=== PATIENT | female | born 1955 | race Caucasian/White ===

== ENCOUNTER 2020-02-28 10:15 | Outpatient (NON) | payer MEDICARE, BC, SELFPAY ==
[2020-02-28 21:17] LABS: SARS-CoV-2 RNA PCR Negative
== END 2020-02-28 10:16 ==
PROVIDERS: Visit Provider Internal Medicine
DX: Z20.828 Contact with and (suspected) exposure to other viral communicable diseases (principal); R05 Cough; R06.2 Wheezing
CPT/HCPCS: 87635; C9803; U0003

== ENCOUNTER 2020-05-01 07:04 | Outpatient (NON) | payer MEDICARE, BC, SELFPAY ==
[2020-05-01 23:31] LABS: SARS-CoV-2 RNA PCR Negative
== END 2020-05-01 07:05 ==
LOC: ANHCOVIDDT 07:04
PROVIDERS: Visit Provider Internal Medicine
DX: R05 Cough (principal); J45.909 Unspecified asthma, uncomplicated; Z20.828 Contact with and (suspected) exposure to other viral communicable diseases
CPT/HCPCS: 87635; C9803; U0003

== ENCOUNTER 2020-05-05 12:15 | Outpatient (NON) | payer MEDICARE, BC, SELFPAY ==
[2020-05-06 20:05] LABS: SARS-CoV-2 RNA PCR Negative
== END 2020-05-05 12:16 ==
PROVIDERS: Visit Provider Internal Medicine
DX: R05 Cough (principal); J45.909 Unspecified asthma, uncomplicated; Z20.828 Contact with and (suspected) exposure to other viral communicable diseases
CPT/HCPCS: 87635; C9803; U0003

== ENCOUNTER 2024-04-04 10:35 | Emergency (ER) | payer MEDICARE, BC, SELFPAY ==
[2024-04-04] VITALS (14 sets, daily range): BP systolic 100–157; BP diastolic 52–97; PULSE 65–97; RESP 14–22; TEMP 36.4–36.8; O2SAT 95–100
--- NOTE | ~2024-04-04 | XR_ITS ---
Portable chest x-ray Comparison: None Clinical History: Shortness of breath Findings: Visualized lungs are clear. Left costophrenic angle probably partially excluded from the f [id number]. Cardiomediastinal silhouette is unremarkable.. Bones and soft tissues are unremarkable . Impression: No significant abnormality seen. Left costophrenic angle partially excluded from the [id number]. Reviewed, dictated and finalized at location M. E MAN Impression: No significant abnormality seen. Left costophrenic angle partially excluded fro m the [id number].
--- NOTE | ~2024-04-04 | US_ITS ---
EXAMINATION:US venous doppler LE LT INDICATION:Left leg swelling and pain TECHNIQUE: Multiple grayscale, color flow and Doppler images of the left lower extremity deep venous systems were obtained and reviewed. COMPARISON:No prior studies for comparison. FINDINGS: The common femoral, superficial femoral and popliteal veins demonstrate normal respiratory variation, augmentation and compressibility. Color flow is also seen within the posterior tibial, pe roneal, greater saphenous and profunda veins. IMPRESSION: 1: No lower extremity deep venous thrombosis. Reviewed, dictated and finalized at location B. NER GREASER
--- NOTE | 2024-04-04 12:11 | ECG_ITS ---
Test Date: 2024-04-04 12:59:38 Measurements Intervals [place] Rate: 79 P: 10 CO: 171 QRS: -3 QRSD: 91 T: 32 QT: 364 QTc: 418 Interpretive Statements SINUS RHYTHM DELAYED PRECORDIAL R/S TRANSITION MINIMAL Q WAVES- HIGH LATERAL LEADS BASELINE ARTIFACT- I, II, III, AVR, AVL,A VF, V2, V5 BORDERLINE ECG No previous ECG available for comparison Electronically Signed On 04-04-2024 13:07:25 LUMP MACHINE OPERATOR by Maged Felton D.O.
[2024-04-04 12:30] LABS: Basophils Percent Auto 0.6 % (0.2-1.2); Eosinophils Absolute Auto 0.1 K/mm3 (0-0.3); Eosinophils Percent Auto 1.2 % (0-4.4); Hematocrit 36.9 % (37.0-47.0); Hemoglobin 11.7 g/dL (12.0-15.0); Immature Granulocyte Absolute 0.02 K/mm3 (0.00-0.031); Immature Granulocyte Percent A 0.3 % (0-0.5); Lymphocytes Absolute Auto 0.56 K/mm3 (0.9-3.2); Lymphocytes Percent Auto 8.6 % (18.3-44.2); Mean Corpuscular HGB Conc 31.7 g/dl (32-36); Mean Corpuscular Hemoglobin 29.1 pg (26-34); Mean Corpuscular Volume 91.8 fl (80-100); Mean Platelet Volume 9.1 fl (7.4-10.4); Monocytes Absolute Auto 0.8 K/mm3 (0.1-0.6); Monocytes Percent Auto 12.7 % (2.6-8.5); Neutrophils Percent Auto 76.6 % (45.5-73.1); Platelet Count Result 214 k/mm3 (150-375); Red Blood Count 4.02 M/mm3 (4.2-5.4); Red Cell Distribution Width 14.8 % (11.5-14.5); White Blood Count 6.5 K/mm3 (4.5-10.0)
[2024-04-04 12:41] LABS: Alanine Aminotransferase 25 U/L (6-35); Albumin Level 3.3 g/dL (3.5-5.1); Alkaline Phosphatase 171 U/L (38-126); Anion Gap 3 mmol/L (4-12); Aspartate Amino Transferase 38 U/L (14-36); Bilirubin,Total 0.6 mg/dL (0.2-1.3); Blood Urea Nitrogen 16 mg/dL (7-17); Calcium 8.5 mg/dL (8.4-10.2); Carbon Dioxide 34 mmol/L (22-30); Chloride 99 mmol/L (98-107); Estimated CRCL calculation 108 ml/min; Estimated Glomerular Filt Rate > 60; Glucose 105 mg/dL (65-110); INR 1.1; Lipase 117 U/L (23-300); Magnesium 1.8 mg/dL (1.6-2.3); Potassium 3.7 mmol/L (3.4-5.0); Prothrombin Time 14.2 Seconds (11.1-14.7); Sodium 136 mmol/L (137-145)
[2024-04-04 12:42] LABS: Partial Thromboplastin Time 28.6 Seconds (22.3-36.8)
[2024-04-04 12:51] LABS: NT Pro B Type Natriuretic Pept 134 pg/mL (19.9-100); Troponin I < 0.012 ng/mL (0.000-0.034)
[2024-04-04 13:42] LABS: Add Urine Microscopic? NO; Appearance Urine Clear (Clear); Bilirubin Urine Negative (Negative); Blood Urine Negative (Negative); Color Urine Yellow (Yellow); Glucose Urine UA Negative (Negative); Ketones Urine Negative (Negative); Leukocyte Esterase Ur Negative LEU/UL (Negative); Nitrate Urine Negative (Negative); Protein Urine Negative (Negative); Specific Grav Ur 1.012 (1.001-1.035); pH Urine 7.5 (5.0-9.0)
--- NOTE | 2024-04-04 14:01 | ED.GENADULT ---
HPI - General Adult General Chief complaint: Unspecified Stated complaint: dyspnea and pain all over Time Seen by Provider: 04/04/24 11:35 History of Present Illness HPI narrative: patient is a 68-year-old female who presents emergency department with chief complaint of lower extremity edema redness pain for a month the patient also reports he has been having cramping in her arms and legs reports she has been doing potassium supplementation patient states she has also had some urinary frequency and urgency for the last month as well the patient states that she also has pain in the left side of her chest patient reports that pain is not improved by anything reports that she has had no fevers Related Data Allergies Allergy/AdvReac Type Severity Reaction Status Date / Time morphine Allergy Vomiting Verified 04/04/24 10:50 Penicillins AdvReac Swelling Verified 04/04/24 10:50 of Lip/Tongue/Throat Review of Systems Review of Systems: A 10 system review of systems was completed on the patient and is negative except for what is stated in the HPI. Nursing and ancillary documentation was reviewed. Exam Narrative: GENERAL: Well-appearing, well-nourished, and in no acute distress. HEAD: Normocephalic, atraumatic. EYES: PERRLA and EOMI. ENT: Nares clear, no rhinorrhea or epistaxis. Mucous membranes moist. NECK: Supple. CHEST: Clear to auscultation. No respiratory distress. HEART: Regular rate and rhythm. No murmur heard. Normal peripheral pulses. ABDOMEN: Soft, nontender, nondistended, normal active bowel sounds. EXTREMITIES: Normal range of motion. No edema. palpable dorsalis pedis on the right left is dopplerable SKIN: Warm, dry, no rash. NEURO: No focal deficits. Alert and oriented x3. PSYCH: Normal mood and affect. Course Vital Signs Vital signs: Vital Signs Temperature 36.8 C 04/04/24 10:43 Pulse Rate 97 04/04/24 10:43 Respiratory Rate 19 04/04/24 10:43 Pulse Oximetry 99 04/04/24 10:43 Oxygen Delivery Room Air 04/04/24 10:43 Temperature 36.4 C 04/04/24 13:06 Pulse Rate 79 04/04/24 14:46 Respiratory Rate 18 04/04/24 14:46 Blood Pressure 114/52 L 04/04/24 14:46 Pulse Oximetry 100 04/04/24 14:46 Oxygen Delivery Room Air 04/04/24 10:43 Medical Decision Making MDM Narrative Medical decision making narrative: differential diagnosis includes DVT left lower extremity, CHF, UTI, ACS, EKG showed no acute ischemic changes urinalysis showed no evidence UTI electrolytes did show a magnesium of 1 point a troponin was negative BNP was 134 venous duplex of left lower extremity showed no evidence of DVT the patient will be given 1 g of IV magnesium and 40 mEq of p.o. potassium Vital Signs Vital Signs: Vital Signs Temperature 36.8 C 04/04/24 10:43 Pulse Rate 97 04/04/24 10:43 Respiratory Rate 19 04/04/24 10:43 Pulse Oximetry 99 04/04/24 10:43 Oxygen Delivery Room Air 04/04/24 10:43 Temperature 36.4 C 04/04/24 13:06 Pulse Rate 79 04/04/24 14:46 Respiratory Rate 18 04/04/24 14:46 Blood Pressure 114/52 L 04/04/24 14:46 Pulse Oximetry 100 04/04/24 14:46 Oxygen Delivery Room Air 04/04/24 10:43 Lab Data 04/04/24 12:24 04/04/24 12:24 Labs: Lab Results 04/04/24 04/04/24 04/04/24 Range/Units 12:24 13:12 15:08 WBC 6.5 (4.5-10.0) K/mm3 RBC 4.02 L (4.2-5.4) M/mm3 Hgb 11.7 L (12.0-15.0) g/dL Hct 36.9 L (37.0-47.0) % MCV 91.8 (80-100) fl MCH 29.1 (26-34) pg MCHC 31.7 L (32-36) g/dl RDW 14.8 H (11.5-14.5) % Plt Count 214 (150-375) k/mm3 MPV 9.1 (7.4-10.4) fl Immature Gran % (Auto) 0.3 (0-0.5) % Neut % (Auto) 76.6 H (45.5-73.1) % Lymph % (Auto) 8.6 L (18.3-44.2) % [place] % (Auto) 12.7 H (2.6-8.5) % Eos % (Auto) 1.2 (0-4.4) % Baso % (Auto) 0.6 (0.2-1.2) % Lymph # (Auto) 0.56 L (0.9-3.2) K/mm3 [place] # (Auto) 0.8 H (0.1-0.6) K/mm3 Eos # (Auto) 0.1 (0-0.3) K/mm3 Baso # (Auto) 0.0 (0.0-0.1) K/mm3 Abs Immat Gran (auto) 0.02 (0.00-0.031) K/mm3 Absolute Neuts (auto) 5.0 (1.3-6.7) K/mm3 Absolute Nucleated RBC 0.000 (0.0-0.012) K/mm3 Nucleated RBC % 0.0 (0.0-0.2) % PT 14.2 (11.1-14.7) Seconds INR 1.1 APTT 28.6 (22.3-36.8) Seconds Sodium 136 L (137-145) mmol/L Potassium 3.7 (3.4-5.0) mmol/L Chloride 99 (98-107) mmol/L Carbon Dioxide 34 H (22-30) mmol/L Anion Gap 3 L (4-12) mmol/L BUN 16 (7-17) mg/dL Creatinine 0.50 L (0.7-1.0) mg/dL Estim Creat Clear Calc 108 ml/min Estimated GFR > 60 (59 - ) Glucose 105 (65-110) mg/dL Calcium 8.5 (8.4-10.2) mg/dL Magnesium 1.8 (1.6-2.3) mg/dL Total Bilirubin 0.6 (0.2-1.3) mg/dL AST 38 H (14-36) U/L ALT 25 (6-35) U/L Alkaline Phosphatase 171 H (38-126) U/L Troponin I < 0.012 < 0.012 (0.000-0.034) ng/mL NT-Pro-B Natriuret Pep 134 H (19.9-100) pg/mL Total Protein 7.0 (6.3-8.2) g/dL Albumin 3.3 L (3.5-5.1) g/dL Lipase 117 (23-300) U/L Urine Color Yellow (Yellow) Urine Appearance Clear (Clear) Urine pH 7.5 (5.0-9.0) Ur Specific [place] 1.012 (1.001-1.035) Urine Protein Negative (Negative) mg/dL Urine Glucose (UA) Negative (Negative) mg/dL Urine Ketones Negative (Negative) mg/dL Ur Blood (Man) Negative (Negative) Urine Nitrate Negative (Negative) Urine Bilirubin Negative (Negative) Urine Urobilinogen 1.0 (<2.0) mg/dL Leukocyte Esterase Rfl Negative (Negative) ALKA/UL Discharge Plan Discharge Clinical Impression: Muscle cramps, Atypical chest pain Patient Disposition: Home, Self-Care Condition: Stable Instructions: Antibiotic Form, Chest Pain (ED), Hypomagnesemia (ED) Additional Instructions: the ultrasound showed no evidence of blood clot in your leg. Your laboratory studies showed that your magnesium was slightly on the lower side this may contribute to the muscle cramps that your having. Prescriptions: New magnesium oxide 500 mg magnesium tablet 500 mg PO BID Qty: 20 0RF Follow-up/Referrals: UNKNOWN,DOCTOR [Primary Care Provider] - Time of Disposition: 15:51 Quality HEART score for chest pain patients History: slightly suspicious ECG: normal Age: > or = to 65 years Risk factors: 1 or 2 risk factors Troponin: < or = to 1x normal limit Heart score: 3
--- NOTE | 2024-04-04 14:55 | ECG_ITS ---
Test Date: 2024-04-04 15:01:12 Measurements Intervals [place] Rate: 75 P: 28 FL: 160 QRS: -3 QRSD: 89 T: 42 QT: 369 QTc: 413 Interpretive Statements SINUS RHYTHM DELAYED PRECORDIAL R/S TRANSITION BORDERLINE ST-T WAVE ABNORMALITY- HIGH LATERAL LEADS BASELINE ARTIFACT- I, II, III, AVR, AVL, AVF, V1-V6 BORDERLINE ECG Compared to ECG 04/04/2024 12:59:38 NO SIGNIFICANT CHANGE Electronically Signed On 04-04-2024 15:14:50 ENGINEER by Maged Felton D.O.
[2024-04-04] MEDS: POTASSIUM CHLORIDE 20 MEQ PACKET (FOR LIQUID) 40 MEQ PO (15:06)
[2024-04-04] MEDS: MAGNESIUM SULF 1 GM/D5W 100 ML 1 GM/100 ML BAG IVPB (15:07)
[2024-04-04 15:36] LABS: Troponin I < 0.012 ng/mL (0.000-0.034)
== END 2024-04-04 16:15 | disposition home or self-care (01) ==
PROVIDERS: Emergency Provider Emergency Medicine
DX: R25.2 Cramp and spasm (principal); R07.89 Other chest pain
CPT/HCPCS: 36415; 71045; 80053; 81003; 83690; 83735; 83880; 84484; 85025; 85610; 85730; 93005; 93971; 96365; 99284; A9270; J3475

== ENCOUNTER 2024-11-18 12:43 | Inpatient (IN) | payer MEDICARE, BC, SELFPAY ==
[2024-11-18] VITALS (7 sets, daily range): BP systolic 103–123; BP diastolic 48–90; PULSE 73–96; RESP 14–20; TEMP 36.5–36.7; O2SAT 94–100; BMI 43.3
--- NOTE | ~2024-11-18 | CT_ITS ---
CLINICAL INDICATION: Left lower extremity cellulitis. COMPARISON: None. TECHNIQUE: Computed tomography (CT) of the left lower extremity was performed following the administr ation of intravenous contrast. The dose-length product was 2167.38 mGy-cm. FINDINGS/OBSERVATIONS: No rim-enhancing fluid collection is identified. Significant edema within the soft tissues, as detected clinically. No acute fracture. IMPRESSION: No rim-enhancing fluid collection. Significant soft tissue edema is detected. Reviewed, dictated and finalized at location A.
--- NOTE | ~2024-11-18 | US_ITS ---
EXAMINATION: US venous doppler [facility] DATE: 11/18/2024 16:23 INDICATION: Bilateral lower limb pain, swelling and erythema TECHNIQUE: Grayscale ultrasound images without and with compression and Doppler ultrasound images of the bilateral lower extremity veins were obtained. COMPARISON: None. FINDINGS: The visualized portions of right common femoral vein, profunda (deep) femoral vein, femoral vein, pop liteal vein, posterior tibial veins, peroneal veins, gastrocnemius vein and greater saphenous vein ou tflow are patent. The visualized portions of left common femoral vein, profunda femoral vein, femoral vein, popliteal v ein, posterior tibial veins, peroneal veins, gastrocnemius vein and greater saphenous vein outflow ar e patent. IMPRESSION: 1. No deep venous thrombosis in either lower limb. Reviewed, dictated and finalized at location A.
--- NOTE | ~2024-11-18 | XR_ITS ---
XR chest 1V portable Ordering provider: Monica Doan History: 69 years Female with . BLE . Comparison: April 04, 2024 FINDINGS: MEDIASTINUM: The cardiac silhouette is slightly enlarged. Congestive sunil. LUNGS: No effusions pneumothorax. Minimal opacification in the lung bases which may indicate atelectasis versus pneumonia. OTHER: No free air unde he diaphragm. Degenerative the spine. IMPRESSION: Bibasilar atelectasis versus pneumonia. Reviewed, dictated and finalized at location A.
--- NOTE | 2024-11-18 15:10 | ED_ITS ---
HPI - Extremity Problem General Chief complaint: Extremity Problem,Nontraumatic <Monica Doan PA-C - Last Filed: 11/18/24 18:06> Stated complaint: left leg swelling for a month <Monica Doan PA-C - Last Filed: 11/18/24 18:06> Time Seen by Provider: 11/18/24 16:31 <Monica Doan PA-C - Last Filed: 11/18/24 18:06> Focused HPI: 69 y/o F with a PMHx of CHF presents to the ED bilateral lower extremity edema and redness for the past 3 weeks with associated pain. Patient states her pain and her legs became significantly worse today, more notably in the left leg which prompted her to come to the ED. She states the pain is sharp and shooting in nature. She denies injury or trauma. She does endorse history of neuropathy but states this pain feels different. Denies chest pain, shortness of breath, fevers. She is prescribed 80 mg of Lasix which she states she has been taking as directed. GENERAL: Well-appearing, well-nourished, and in no acute distress. HEAD: Normocephalic, atraumatic. CHEST: Clear to auscultation. ?No respiratory distress. EXT: Bilateral lower extremity edema, left greater than right. DP pulses are dopplered. Extremities are pink, warm and dry with cap refill less than 2. There is blanching erythema. tenderness and warmth to bilateral lower extremities, left greater than right. There is 1 superficial wound to the left anterior tibia and and intact small pustule. No active drainage or purulence. Compartments are soft. HEART: Regular rate and rhythm.? NEURO: ?Alert and oriented x3. Patient screened in triage and initial orders placed.? ?Additional care and disposition to be based upon?diagnostic testing and treatment. <Monica Doan PA-C - Last Filed: 11/18/24 18:06> History of Present Illness HPI Narrative: Agree with the above triage note. <Monica Doan PA-C - Last Filed: 11/18/24 18:06> Related Data Home medications: Home Medications ?Medication ?Instructions ?Recorded ?Confirmed ?Last Taken ?Type atorvastatin 80 mg tablet 80 mg PO HS 06/05/24 06/05/24 06/04/24 History clopidogrel 75 mg tablet 75 mg PO DAILY 06/05/24 06/05/24 06/04/24 History fluticasone furoate 200 1 inh inhalation HS 06/05/24 06/05/24 06/04/24 History mcg-vilanterol 25 mcg/dose inhalation powder (Breo Ellipta) furosemide 80 mg tablet 80 mg PO DAILY PRN edema 06/05/24 06/05/24 06/04/24 History gabapentin 300 mg capsule 300 mg PO BID 06/05/24 06/05/24 06/04/24 History meclizine 25 mg tablet 12.5 mg PO .TID PRN dizziness 06/05/24 06/05/24 Unknown History oxybutynin chloride 5 mg 5 mg PO HS 06/05/24 06/05/24 Unknown History tablet,extended release 24 hr <Monica Doan PA-C - Last Filed: 11/18/24 18:06> Allergies/Adverse reactions: Allergies Allergy/AdvReac Type Severity Reaction Status Date / Time morphine Allergy Vomiting Verified 11/18/24 17:59 Penicillins AdvReac Swelling Verified 11/18/24 17:59 of Lip/Tongue/Throat <Monica Doan PA-C - Last Filed: 11/18/24 18:06> [facility] Past Medical History Medical History: Medical History (Updated 11/18/24 @ 17:36 by Monica Doan PA-C) Muscle cramps Atypical chest pain <Monica Doan PA-C - Last Filed: 11/18/24 18:06> Family History Family History: Family History Mother Seizure Lung disease Cerebrovascular accident Father Diabetes mellitus Heart failure <Monica Doan PA-C - Last Filed: 11/18/24 18:06> Social History Social History: Social History Smoking status: Never smoker Alcohol intake: never Substance use: never Do You Feel Safe in your Home?: Yes Lack of Transportation: No Lack of Food: Never True Current Housing: I Have Housing Concerned About Future Housing: Decline to Answer Difficulty Paying Gas/Electric Bills: Decline to Answer Difficulty Paying for Meds: Decline to Answer Currently Unemployed: Decline to Answer Education: High School Diploma/GED Difficulty w/ Childcare or Family Care: Decline to Answer Spiritual care concerns: No <Monica Daon PA-C - Last Filed: 11/18/24 18:06> Exam 2 Narrative: GENERAL: Well-appearing, well-nourished, and in no acute distress. HEAD: Normocephalic, atraumatic. EYES: EOMI. ENT: Nares clear, no rhinorrhea or epistaxis. Mucous membranes moist. NECK: Supple. CHEST: Clear to auscultation. No respiratory distress. HEART: Regular rate and rhythm. No murmur heard. Normal peripheral pulses. EXTREMITIES: Bilateral lower extremity edema, left greater than right. DP pulses are dopplered. Extremities are pink, warm and dry with cap refill less than 2. There is blanching erythema. tenderness and warmth to bilateral lower extremities, left greater than right. There is 1 superficial wound to the left anterior tibia and small intact small pustule. No active drainage or purulence. Compartments are soft. No crepitus or vesicles. HEART: Regular rate and rhythm.? SKIN: Warm, dry, no rash. NEURO: No focal deficits. Alert and oriented x3 <Monica Doan PA-C - Last Filed: 11/18/24 18:06> Course RESIDENT MANAGER/PA Physician Supervision Agree with the management <Rian Frederick MD - Last Filed: 11/18/24 19:19> Vital Signs Vital signs: Vital Signs Temperature 36.7 C 11/18/24 12:46 Pulse Rate 96 11/18/24 12:46 Respiratory Rate 15 11/18/24 12:46 Blood Pressure 123/88 11/18/24 12:46 Pulse Oximetry 98 11/18/24 12:46 Oxygen Delivery Room Air 11/18/24 12:46 Temperature 36.5 C 11/18/24 14:34 Pulse Rate 86 11/18/24 18:42 Respiratory Rate 17 11/18/24 18:42 Blood Pressure 109/59 L 11/18/24 18:42 Pulse Oximetry 97 11/18/24 18:42 Oxygen Delivery Room Air 11/18/24 12:46 <Monica Doan PA-C - Last Filed: 11/18/24 18:06> Vital Signs Temperature 36.7 C 11/18/24 12:46 Pulse Rate 96 11/18/24 12:46 Respiratory Rate 15 11/18/24 12:46 Blood Pressure 123/88 11/18/24 12:46 Pulse Oximetry 98 11/18/24 12:46 Oxygen Delivery Room Air 11/18/24 12:46 Temperature 36.5 C 11/18/24 14:34 Pulse Rate 86 11/18/24 18:42 Respiratory Rate 17 11/18/24 18:42 Blood Pressure 109/59 L 11/18/24 18:42 Pulse Oximetry 97 11/18/24 18:42 Oxygen Delivery Room Air 11/18/24 12:46 <Rian Frederick MD - Last Filed: 11/18/24 19:19> MDM - Extremity (Nontraumatic) MDM Narrative Medical decision making narrative: 69-year-old female history of CHF presents to the emergency department for bilateral lower extremity redness, swelling and pain. See HPI for further history. Triage vitals are stable. Patient is afebrile and nontoxic appearing. Exam is notable for the above. Patient is neurovascularly intact. EKG shows normal sinus rhythm with rate of 71 ppm, normal IA interval, normal QRS duration, normal QTC, no ischemic changes. Lab work shows no leukocytosis or anemia. Chemistries with chronically elevated alk phos. BNP is elevated to 491 which is increased from prior 134 in March of 2024. CRP elevated at 2.4. Chest x-ray shows bilateral atelectasis versus pneumonia. Low suspicion for pneumonia given no leukocytosis, no cough. Bilateral venous duplex shows no evidence of DVT. Patient updated on results. She was given Dilaudid for pain. I suspect her symptoms are due to stasis dermatitis versus cellulitis. She was given a dose of Lasix and started on vancomycin. Will admit for further evaluation and management. Discussed with hospitalist RESIDENT MANAGER, Emma, who agrees to admission. < Monica Doan PA-C - Last Filed: 11/18/24 18:06> Lab Data Result diagrams: 11/18/24 16:21 11/18/24 16:21 <Monica Doan PA-C - Last Filed: 11/18/24 18:06> Labs: Lab Results 11/18/24 Range/Units 16:21 WBC 7.1 (4.5-10.0) K/mm3 RBC 4.48 (4.2-5.4) M/mm3 Hgb 12.6 (12.0-15.0) g/dL Hct 40.5 (37.0-47.0) % MCV 90.4 (80-100) fl MCH 28.1 (26-34) pg MCHC 31.1 L (32-36) g/dl RDW 14.5 (11.5-14.5) % Plt Count 230 (150-375) k/mm3 MPV 9.4 (7.4-10.4) fl Immature Gran % (Auto) 0.1 (0-0.5) % Neut % (Auto) 70.0 (45.5-73.1) % Lymph % (Auto) 15.8 L (18.3-44.2) % [place] % (Auto) 11.7 H (2.6-8.5) % Eos % (Auto) 1.8 (0-4.4) % Baso % (Auto) 0.6 (0.2-1.2) % Lymph # (Auto) 1.12 (0.9-3.2) K/mm3 [place] # (Auto) 0.8 H (0.1-0.6) K/mm3 Eos # (Auto) 0.1 (0-0.3) K/mm3 Baso # (Auto) 0.0 (0.0-0.1) K/mm3 Abs Immat Gran (auto) 0.01 (0.00-0.031) K/mm3 Absolute Neuts (auto) 5.0 (1.3-6.7) K/mm3 Absolute Nucleated RBC 0.000 (0.0-0.012) K/mm3 Nucleated RBC % 0.0 (0.0-0.2) % ESR 41 H (0-20) mm/hr PT 13.6 (11.1-14.7) Seconds INR 1.1 APTT 22.7 (22.3-36.8) Seconds Sodium 139 (137-145) mmol/L Potassium 4.1 (3.4-5.0) mmol/L Chloride 103 (98-107) mmol/L Carbon Dioxide 31 H (22-30) mmol/L Anion Gap 5 (4-12) mmol/L BUN 15 D (7-17) mg/dL Creatinine 0.59 L (0.7-1.0) mg/dL Estim Creat Clear Calc 98 ml/min Estimated GFR > 60 (59 - ) Glucose 96 (65-110) mg/dL Lactic Acid 0.9 (0.7-2.0) mmol/L Calcium 8.7 (8.4-10.2) mg/dL Total Bilirubin 0.4 (0.2-1.3) mg/dL AST 42 H (14-36) U/L ALT 25 (6-35) U/L Alkaline Phosphatase 192 H (38-126) U/L C-Reactive Protein 2.4 H (<1.0) mg/dL NT-Pro-B Natriuret Pep 491 H (19.9-100) pg/mL Total Protein 7.3 (6.3-8.2) g/dL Albumin 3.6 (3.5-5.1) g/dL <Monica Doan PA-C - Last Filed: 11/18/24 18:06> Lab Results 11/18/24 Range/Units 16:21 WBC 7.1 (4.5-10.0) K/mm3 RBC 4.48 (4.2-5.4) M/mm3 Hgb 12.6 (12.0-15.0) g/dL Hct 40.5 (37.0-47.0) % MCV 90.4 (80-100) fl MCH 28.1 (26-34) pg MCHC 31.1 L (32-36) g/dl RDW 14.5 (11.5-14.5) % Plt Count 230 (150-375) k/mm3 MPV 9.4 (7.4-10.4) fl Immature Gran % (Auto) 0.1 (0-0.5) % Neut % (Auto) 70.0 (45.5-73.1) % Lymph % (Auto) 15.8 L (18.3-44.2) % Bond % (Auto) 11.7 H (2.6-8.5) % Eos % (Auto) 1.8 (0-4.4) % Baso % (Auto) 0.6 (0.2-1.2) % Lymph # (Auto) 1.12 (0.9-3.2) K/mm3 [place] # (Auto) 0.8 H (0.1-0.6) K/mm3 Eos # (Auto) 0.1 (0-0.3) K/mm3 Baso # (Auto) 0.0 (0.0-0.1) K/mm3 Abs Immat Gran (auto) 0.01 (0.00-0.031) K/mm3 Absolute Neuts (auto) 5.0 (1.3-6.7) K/mm3 Absolute Nucleated RBC 0.000 (0.0-0.012) K/mm3 Nucleated RBC % 0.0 (0.0-0.2) % ESR 41 H (0-20) mm/hr PT 13.6 (11.1-14.7) Seconds INR 1.1 APTT 22.7 (22.3-36.8) Seconds Sodium 139 (137-145) mmol/L Potassium 4.1 (3.4-5.0) mmol/L Chloride 103 (98-107) mmol/L Carbon Dioxide 31 H (22-30) mmol/L Anion Gap 5 (4-12) mmol/L BUN 15 D (7-17) mg/dL Creatinine 0.59 L (0.7-1.0) mg/dL Estim Creat Clear Calc 98 ml/min Estimated GFR > 60 (59 - ) Glucose 96 (65-110) mg/dL Lactic Acid 0.9 (0.7-2.0) mmol/L Calcium 8.7 (8.4-10.2) mg/dL Total Bilirubin 0.4 (0.2-1.3) mg/dL AST 42 H (14-36) U/L ALT 25 (6-35) U/L Alkaline Phosphatase 192 H (38-126) U/L C-Reactive Protein 2.4 H (<1.0) mg/dL NT-Pro-B Natriuret Pep 491 H (19.9-100) pg/mL Total Protein 7.3 (6.3-8.2) g/dL Albumin 3.6 (3.5-5.1) g/dL <Rian Frederick MD - Last Filed: 11/18/24 19:19> Discharge Plan Discharge Clinical Impression: Bilateral leg edema Cellulitis Qualifiers: Site of cellulitis: extremity Site of cellulitis of extremity: lower extremity Laterality: left Qualified Code(s): L03.116 - Cellulitis of left lower limb <Monica Doan PA-C - Last Filed: 11/18/24 18:06> Patient Disposition: Still a Patient <Monica Doan PA-C - Last Filed: 11/18/24 18:06> Condition: Stable <Monica Doan PA-C - Last Filed: 11/18/24 18:06>
--- NOTE | 2024-11-18 15:47 | ECG_ITS ---
Test Date: 2024-11-18 17:01:14 Measurements Intervals [place] Rate: 71 P: 18 ID: [id number] QRS: -6 QRSD: 92 T: 24 QT: 384 QTc: 419 Interpretive Statements SINUS RHYTHM BASELINE ARTIFACT- I, II, III, AVR, AVL, AVF NORMAL ECG Compared to ECG 04/04/2024 15:01:12 No significant changes Electronically Signed On 11-18-2024 19:23:12 CDT by Maged Felton D.O.
[2024-11-18 16:28] LABS: Basophils Percent Auto 0.6 % (0.2-1.2); Eosinophils Absolute Auto 0.1 K/mm3 (0-0.3); Eosinophils Percent Auto 1.8 % (0-4.4); Hematocrit 40.5 % (37.0-47.0); Hemoglobin 12.6 g/dL (12.0-15.0); Immature Granulocyte Absolute 0.01 K/mm3 (0.00-0.031); Immature Granulocyte Percent A 0.1 % (0-0.5); Lymphocytes Absolute Auto 1.12 K/mm3 (0.9-3.2); Lymphocytes Percent Auto 15.8 % (18.3-44.2); Mean Corpuscular HGB Conc 31.1 g/dl (32-36); Mean Corpuscular Hemoglobin 28.1 pg (26-34); Mean Corpuscular Volume 90.4 fl (80-100); Mean Platelet Volume 9.4 fl (7.4-10.4); Monocytes Absolute Auto 0.8 K/mm3 (0.1-0.6); Monocytes Percent Auto 11.7 % (2.6-8.5); Platelet Count Result 230 k/mm3 (150-375); Red Blood Count 4.48 M/mm3 (4.2-5.4); Red Cell Distribution Width 14.5 % (11.5-14.5); White Blood Count 7.1 K/mm3 (4.5-10.0)
[2024-11-18 16:42] LABS: INR 1.1; Lactic Acid Reflex 0.9 mmol/L (0.7-2.0); Partial Thromboplastin Time 22.7 Seconds (22.3-36.8); Prothrombin Time 13.6 Seconds (11.1-14.7)
[2024-11-18 16:44] LABS: Alanine Aminotransferase 25 U/L (6-35); Albumin Level 3.6 g/dL (3.5-5.1); Alkaline Phosphatase 192 U/L (38-126); Anion Gap 5 mmol/L (4-12); Aspartate Amino Transferase 42 U/L (14-36); Bilirubin,Total 0.4 mg/dL (0.2-1.3); Blood Urea Nitrogen 15 mg/dL (7-17); CRP. 2.4 mg/dL (<1.0); Calcium 8.7 mg/dL (8.4-10.2); Carbon Dioxide 31 mmol/L (22-30); Chloride 103 mmol/L (98-107); Estimated CRCL calculation 98 ml/min; Estimated Glomerular Filt Rate > 60; Glucose 96 mg/dL (65-110); Potassium 4.1 mmol/L (3.4-5.0); Sodium 139 mmol/L (137-145); Total Protein 7.3 g/dL (6.3-8.2)
[2024-11-18 16:50] LABS: NT Pro B Type Natriuretic Pept 491 pg/mL (19.9-100)
[2024-11-18 17:44] LABS: Erythrocyte Sedimentation Rate 41 mm/hr (0-20)
--- NOTE | 2024-11-18 17:58 | PC.NURSE ---
pt informed this RN that she uses 3L of oxygen to sleep due to her sleep apnea and asthma
[2024-11-18] MEDS: ONDANSETRON INJ 4 MG/2 ML VIAL IV PUSH (18:07)
[2024-11-18] MEDS: HYDROmorphone HCL INJ (*CRX) 2 MG/ML VIAL 0.5 MG IV PUSH ×2 (18:09→23:33)
[2024-11-18] MEDS: FUROSEMIDE INJ 40 MG/4 ML VIAL IV PUSH (18:10)
[2024-11-18] MEDS: VANCOMYCIN 1,500 MG/NS 500 ML 1,500 MG/500 ML BAG 250 MG IVPB (18:22)
--- NOTE | 2024-11-18 19:28 | PC.NURSE ---
this RN waited the 15 minuets to call report and a little after due to giving report to the ED night nurse and the floor nurses getting report. this RN called up at 1920, waited on hold for 5 minuets, and spoke to a new night traveler nurse who said along the lines of I dont read about patients when I get here so you need to give me a run down, this RN said that in this hospital that is not policy but since its shift change this RN gave a brief run down of why the patient was here and what her POC is. floor nurse asked this RN where the IV was and this RN said that information is in the chart. floor nurse did not like that and said she will inform the nurse program manager about this, this RN said sounds good and to have a good night
--- NOTE | 2024-11-18 19:53 | ADMGEN ---
This patient, Brea Monsalve, was admitted to [address] [place] [address] Room 246-01 at 1957, alert and oriented x4 for yousif lower extremity cellulitis. Yousif lower extremities are red, swollen and tender to touch. Patient was able to be assisted off the stretcher and to the bathroom with touch balance and assist of cane (states uses walker at home and has history of vertigo). Patient assisted to bed safely, HOB elevated to comfort and IV Vancomycin continues to infuse with no ASE noted. Patient/family oriented to hospital policies and general routines including ID bracelet, bed and alarms, visiting hours, pain management, procedures, bathroom and other care routines, personal items, smoking policy, room service/diet, and visiting hours. Information on how to activate the Rapid Response Team has been discussed. Patient verbalized understanding. Patient/Family are encouraged to report perceived risks to care and to ask questions if they do not understand what they are told or what they should do.
--- NOTE | 2024-11-18 22:19 | PM.IMHP ---
H&P: HPI History of Present Illness Date/Time: 11/18/24 22:19 Chief Complaint: Increased swelling of both legs and pain Narrative: 69-year-old female with a past medical history of morbid obesity, obstructive sleep apnea on nighttime O2 chronic back pain, psoriasis, chronic lymphedema with venous stasis dermatitis who presented to the ER due to increasing swelling and erythema of the left leg. She reports he has chronic and edema of both legs but has had worsening edema of both legs over the last month or 2. But the edema in the left leg is been significantly worse. It is been accompanied by increased erythema of the left leg into ankle. DU to left leg is also more painful she reports the pain is a 10/10 intensity is worst. Is gotten better since she has been admitted but is still an 8/10 in intensity but prior to pain medication administration. She denies having any fevers but has been having some chills. She denies any nausea or vomiting. She denies any increased shortness of breath, or paroxysmal nocturnal dyspnea she sleeps in in a hospital bed with head of bed about 30?. She reports he has chronic orthopnea but it is unchanged from baseline is long she sleeps in her hospital bed at home. She does wear 3 L of oxygen in at night due to obstructive sleep apnea. She reports that she was never able to keep the CPAP on was when she was asleep she would always take it off so she was transition to oxygen. She denies any injuries or abrasions to the extremity she has not had any weeping or oozing. Review of Systems Review of Systems: 12 systems were reviewed with pertinent positives and negatives per HPI. Except as documented in the HPI, all other systems were reviewed and are negative. [facility] Past Medical History Medical History (Updated 11/19/24 @ 09:21 by Berta Hansen DO) Obstructive sleep apnea Nocturnal hypoxemia due to obesity Morbid (severe) obesity due to excess calories Hyperlipidemia Asthma Kidney stones Scoliosis Psoriasis Cancer of right breast Surgical History Surgical History (Updated 11/19/24 @ 09:21 by Berta Hansen DO) History of lumbar surgery History of oral surgery Removal of salivary gland tumor History of right mastectomy At age 39 History of total abdominal hysterectomy and bilateral salpingo-oophorectomy Due to uterine fibroids Family History Family History Mother Seizure Lung disease Cerebrovascular accident Father Diabetes mellitus Heart failure Social History Social History (Updated 11/19/24 @ 09:23 by Berta Hansen DO) Social History: The patient lives at home with her . She has 1 daughter and 1 son. She is a retired associate accountant. She is a lifelong nonsmoker. She denies any history of significant alcohol use or illicit substance use. She ambulates with a walker or cane. Code status: Full code Surrogate decision maker: Smoking status: Never smoker Second hand tobacco smoke exposure: No Alcohol intake: never Substance use: never Substance use type: does not use Do You Feel Safe in your Home?: Yes Lack of Transportation: No Lack of Food: Never True Current Housing: I Have Housing Concerned About Future Housing: Decline to Answer Difficulty Paying Gas/Electric Bills: Decline to Answer Difficulty Paying for Meds: Decline to Answer Currently Unemployed: Decline to Answer Education: High School Diploma/GED Difficulty w/ Childcare or Family Care: Decline to Answer Spiritual care concerns: No Meds Home Medications and Allergies Home Medications ?Medication ?Instructions ?Recorded ?Confirmed ?Type magnesium oxide 500 mg PO BID #20 tabs 04/04/24 11/18/24 Rx atorvastatin 80 mg tablet 80 mg PO HS cholesterol 06/05/24 11/18/24 History clopidogrel 75 mg tablet 75 mg PO DAILY blood thinner 06/05/24 11/18/24 History fluticasone furoate 200 1 inh inhalation HS asthma 06/05/24 11/18/24 History mcg-vilanterol 25 mcg/dose inhalation powder (Breo Ellipta) furosemide 80 mg tablet 80 mg PO DAILY PRN edema 06/05/24 11/18/24 History meclizine 25 mg tablet 12.5 mg PO .TID PRN dizziness 06/05/24 11/18/24 History oxybutynin chloride 5 mg 5 mg PO HS PRN bladder spasms 06/05/24 11/18/24 History tablet,extended release 24 hr acetaminophen 325 mg tablet 500 mg PO Q4H PRN Mild Pain (1-3) 11/18/24 11/18/24 History Or Fever cholecalciferol (vitamin D3) 125 125 mcg PO DAILY 11/18/24 11/18/24 History mcg (5,000 unit) tablet (Vitamin D3) coQ10 (ubiquinol) 200 mg capsule 200 mg PO DAILY 11/18/24 11/18/24 History ginkgo biloba leaf extract 125 mg 125 mg PO DAILY 11/18/24 11/18/24 History capsule potassium chloride 10 mEq 10 meq PO BID 11/18/24 11/18/24 History tablet,extended release(part/cryst) Allergies Allergy/AdvReac Type Severity Reaction Status Date / Time morphine Allergy Vomiting Verified 11/18/24 17:59 Penicillins AdvReac Swelling Verified 11/18/24 17:59 of Lip/Tongue/Throat Vital Signs Vital Signs - 24 hr 11/18/24 12:46 11/18/24 14:34 11/18/24 17:50 Temperature 98.0 F 97.7 F Pulse Rate 96 73 84 Respiratory Rate 15 18 14 Blood Pressure 123/88 120/90 123/68 Pulse Oximetry 98 100 99 Oxygen Delivery Room Air 11/18/24 18:42 11/18/24 19:19 11/18/24 20:00 Temperature 98.0 F Pulse Rate 86 86 85 Respiratory Rate 17 18 18 Blood Pressure 109/59 L 109/59 L 103/48 L Pulse Oximetry 97 94 95 Oxygen Delivery 11/18/24 21:44 Temperature Pulse Rate Respiratory Rate 20 Blood Pressure Pulse Oximetry Oxygen Delivery Exam Narrative: Weight 118.2 kg BMI 43.4 Const: Other: Morbidly obese, no acute distress HENMT: Other: Nasal cannula in place, mucous membranes are moist, crowded posterior oropharynx Eyes: Other: No scleral icterus, no conjunctival pallor, pupils are equal and reactive Neck: Other: Large neck circumference, no JVD Resp: Other: Clear to auscultation bilaterally, no increased work of breathing Cardio: Other: Regular rate, regular rhythm, 2+ bilateral radial and pedal pulses GI: Other: Obese, soft, nontender Skin: Other: Erythema bilateral lower extremities with skin changes consistent with chronic venous stasis dermatitis/lymphedema, the right leg appears chronically erythematous about the mid sewell down to the ankle the left lower extremity is more erythematous with erythema extending down below the ankle specially in the medial portion of the leg and the erythema extends up to just below the knee it is associated with increased tenderness to palpation and increased edema as well as increased warmth. No open wounds or drainage Neuro: Other: Alert oriented x4, speech is clear, no facial asymmetry no localizing neurologic deficits noted during the course of conversation Extrem: Other: Mild decreased range of motion of the left ankle due to edema, bilateral lower extremity edema left greater than right nonpitting erythema is noted above under skin exam, no clubbing, no cyanosis Psych: Other: Appropriate mood and affect, judgment insight intact H&P: Results Labs Labs: Laboratory Tests 11/18/24 16:21 11/18/24 16:21 11/18/24 16:21 WBC 7.1 RBC 4.48 Hgb 12.6 Hct 40.5 MCV 90.4 MCH 28.1 MCHC 31.1 L RDW 14.5 Plt Count 230 MPV 9.4 Immature Gran % (Auto) 0.1 Neut % (Auto) 70.0 Lymph % (Auto) 15.8 L Clare % (Auto) 11.7 H Eos % (Auto) 1.8 Baso % (Auto) 0.6 Lymph # (Auto) 1.12 Clare # (Auto) 0.8 H Eos # (Auto) 0.1 Baso # (Auto) 0.0 Abs Immat Gran (auto) 0.01 Absolute Neuts (auto) 5.0 Absolute Nucleated RBC 0.000 Nucleated RBC % 0.0 ESR 41 H PT 13.6 INR 1.1 APTT 22.7 Sodium 139 Potassium 4.1 Chloride 103 Carbon Dioxide 31 H Anion Gap 5 BUN 15 D Creatinine 0.59 L Estim Creat Clear Calc 98 Estimated GFR > 60 Glucose 96 Lactic Acid 0.9 Calcium 8.7 Total Bilirubin 0.4 AST 42 H ALT 25 Alkaline Phosphatase 192 H C-Reactive Protein 2.4 H NT-Pro-B Natriuret Pep 491 H Total Protein 7.3 Albumin 3.6 Impressions Venous Doppler Study 11/18/24 16:25 IMPRESSION: 1. No deep venous thrombosis in either lower limb. Chest X-Ray 11/18/24 16:42 IMPRESSION: Bibasilar atelectasis versus pneumonia. EKG:Test Date: 2024-11-18 17:01:14 Measurements Intervals [place] Rate: 71 P: 18 [place]: 162 QRS: -6 QRSD: 92 T: 24 QT: 384 QTc: 419 Interpretive Statements SINUS RHYTHM BASELINE ARTIFACT- I, II, III, AVR, AVL, AVF NORMAL ECG Compared to ECG 04/04/2024 15:01:12 No significant changes Assessment and Plan Assessment and plan (1) Cellulitis of left lower leg: Code(s): L03.116 - Cellulitis of left lower limb Status: Acute (2) Lymphedema due to venous disease: Code(s): I89.0 - Lymphedema, not elsewhere classified; I99.9 - Unspecified disorder of circulatory system Status: Acute (3) Morbid (severe) obesity due to excess calories: Code(s): E66.01 - Morbid (severe) obesity due to excess calories Status: Acute (4) Nocturnal hypoxemia due to obesity: Code(s): E66.9 - Obesity, unspecified; G47.36 - Sleep related hypoventilation in conditions classified elsewhere Status: Acute Plan Patient has been started on vancomycin for cellulitis of the left lower extremity. Will repeat CBC in a.m.. Will monitor for signs of infection. Will continue p.r.n. pain medications. Blood cultures are pending. Will continue patient on her home supplemental oxygen at night. Will continue patient's home Breo inhaler. She reports that she has lost 60 lb but in the last couple of months has actually gained back about 15 or 20 lb. She reports that she has gained the weight despite no changes in her diet. Place patient on I heart healthy diet. Patient has been admitted as observation status. MEDICAL DECISION MAKING NARRATIVE -Spoke with the ED provider in detail regarding patient's evaluation, workup and management -Patient seen and examined at bedside -Collaborated with patient's nurse at the bedside in detail and addressed all concerns -Labs, electrolytes, radiology, investigations and test results reviewed -ED/Consult/Nursing/Ancilliary notes on the chart reviewed and appreciated -Spoke with patient and all questions answered Quality VTE Prophylaxis VTE prophylaxis: pharmacologic ordered (Lovenox 40 mg subQ q.12 hours.) Hospitalist [facility] Advance Care Plan I have confirmed that the patient's Advanced Care Plan is present, code status is documented, or surrogate decision maker is listed in patient medical record.: Yes Medication Reconciliation I have utilized all available resources to obtain, update and review the patients current medications (includes all prescriptions, OTC, herbals, cannabis, and nutritional supplements).: Yes
[2024-11-18] MEDS: MAGNESIUM OXIDE 400 MG TABLET PO (22:47)
[2024-11-18] MEDS: POTASSIUM CHLORIDE 10 MEQ ER TABLET PO (22:47)
[2024-11-18] MEDS: ATORVASTATIN 40 MG TABLET 80 MG PO (22:47)
[2024-11-19 05:13] VITALS: BP 144/76; PULSE 70; RESP 20; TEMP 36.5; O2SAT 100
[2024-11-19 05:20] LABS: Hematocrit 38.8 % (37.0-47.0); Hemoglobin 11.4 g/dL (12.0-15.0); Mean Corpuscular HGB Conc 29.4 g/dl (32-36); Mean Corpuscular Hemoglobin 28.4 pg (26-34); Mean Corpuscular Volume 96.5 fl (80-100); Mean Platelet Volume 10.2 fl (7.4-10.4); Platelet Count Result 204 k/mm3 (150-375); Red Blood Count 4.02 M/mm3 (4.2-5.4); Red Cell Distribution Width 14.6 % (11.5-14.5); White Blood Count 5.9 K/mm3 (4.5-10.0)
[2024-11-19] MEDS: VANCOMYCIN 1,500 MG/NS 500 ML 1,500 MG/500 ML BAG 250 MG IVPB ×2 (05:31→17:53)
[2024-11-19 06:37] LABS: Anion Gap 4 mmol/L (4-12); Blood Urea Nitrogen 15 mg/dL (7-17); Calcium 8.2 mg/dL (8.4-10.2); Carbon Dioxide 28 mmol/L (22-30); Chloride 104 mmol/L (98-107); Estimated CRCL calculation 108 ml/min; Estimated Glomerular Filt Rate > 60; Glucose 132 mg/dL (65-110); Sodium 136 mmol/L (137-145)
[2024-11-19] MEDS: FLUTICASONE/SALMETEROL 230-21 MCG INHALER 1 PUFF 2 PUFF INHALATION ×2 (07:32→20:25)
[2024-11-19 07:33] VITALS: O2SAT 90
--- NOTE | 2024-11-19 07:40 | PM.IMPN ---
Progress Note: A&P Assessment and Plan (1) Cellulitis: Qualifiers: Laterality: left Site of cellulitis: extremity Site of cellulitis of extremity: lower extremity Qualified Code(s): L03.116 - Cellulitis of left lower limb Code(s): L03.90 - Cellulitis, unspecified Status: Acute Assessment and Plan: Bilateral lower extremity with edema and redness for the past 3 weeks with associated pain. - Started on vancomycin, pharmacy to dose - Venous dopplers negative - CT ordered to further rule out abscess given tenderness and pustule noted - Monitor vital signs, I&Os, neuro status and patient is a fall risk - Monitor serum electrolytes, CBC, cultures, WBC and temp curve - Consider a consult with wound care or general surgeon (2) Lymphedema due to venous disease: Code(s): I89.0 - Lymphedema, not elsewhere classified; I99.9 - Unspecified disorder of circulatory system Status: Acute Assessment and Plan: Bilateral lower extremity with edema and redness for the past 3 weeks with associated pain. Venous dopplers negative (3) Morbid (severe) obesity due to excess calories: Code(s): E66.01 - Morbid (severe) obesity due to excess calories Status: Acute Assessment and Plan: Encouraged healthy diet and exercise (4) Nocturnal hypoxemia due to obesity: Code(s): E66.9 - Obesity, unspecified; G47.36 - Sleep related hypoventilation in conditions classified elsewhere Status: Acute Assessment and Plan: Chronic 3L NC overnight. Time Spent With Patient Time with patient: 25 - 35 minutes Subjective Date/time seen: 11/19/24 07:40 Interval history: 69-year-old female with a past medical history of morbid obesity, obstructive sleep apnea on nighttime O2 at 3L NC, chronic back pain, psoriasis, chronic lymphedema with venous stasis dermatitis who presented to the hospital for increasing swelling and erythema of the left leg. Patient is pleasant lying comfortably in bed. She continues to endorse bilateral lower extremity pain that she describes as shooting pain from the mid calf down. She states that the pain is well controlled on current regimen. She does note that they redness and swelling is slightly improved since admission. She has no other complaints denying chest pain, shortness a breath, palpitations, nausea/vomiting, and abdominal pain. Review of Systems Review of Systems: All systems reviewed & are unremarkable except as noted in HPI and below Exam Narrative: AF HR 70 RR 20 Spo2 100 BP 144/76 General: female in no acute respiratory distress who is nontoxic appearing, lying semi recumbent in bed. HEENT: Normocephalic. Atraumatic. Extraocular movement intact. Sclera clear and anicteric. No facial asymmetry. Chest: Lungs are clear to auscultation bilaterally. No wheezes or crackles. CV: Heart was regular rate and rhythm. S1-S2. No murmurs, gallops, or rubs. Abd: Abdomen was soft. Nontender. Nondistended. Positive bowel sounds. Ext: DP pulses bilaterally. Circumferential erythema, edema and warmth to the bilateral mid calf region, left worse than right. Tender to palpation. Lateral mid calf with a small extremely tender pustule. No openly draining wounds. Neuro: Patient is alert and oriented x4. Speech is clear. Objective Data Vital Signs Vital Signs: Vital Signs - 24 hr 11/18/24 12:46 11/18/24 14:34 11/18/24 17:50 Temperature 98.0 F 97.7 F Pulse Rate 96 73 84 Respiratory Rate 15 18 14 Blood Pressure 123/88 120/90 123/68 Pulse Oximetry 98 100 99 Oxygen Delivery Room Air 11/18/24 18:42 11/18/24 19:19 11/18/24 20:00 Temperature 98.0 F Pulse Rate 86 86 85 Respiratory Rate 17 18 18 Blood Pressure 109/59 L 109/59 L 103/48 L Pulse Oximetry 97 94 95 Oxygen Delivery 11/18/24 21:44 11/19/24 05:13 11/19/24 07:33 Temperature 97.7 F Pulse Rate 70 Respiratory Rate 20 20 Blood Pressure 144/76 H Pulse Oximetry 100 90 Oxygen Delivery Room Air Intake/Output Intake/Output: Intake & Output 11/16/24 11/17/24 11/18/24 11/19/24 23:59 23:59 23:59 23:59 Intake Total 500 530 Balance 500 530 Meds/Results Medications: Active Medications Generic Name Dose Route Start Last Admin Trade Name Freq PRN Reason Stop Dose Admin Acetaminophen 650 mg 11/18/24 17:51 Acetaminophen 325 Mg Tablet PO Q4H PRN Mild Pain (1-3) or Fever Atorvastatin Calcium 80 mg 11/18/24 22:20 11/18/24 22:47 Atorvastatin 40 Mg Tablet PO 80 mg HS JANE Administration Clopidogrel Bisulfate 75 mg 11/19/24 09:00 Clopidogrel Bisulfate 75 Mg Tablet PO DAILY [facility] Enoxaparin Sodium 40 mg 11/19/24 09:00 Enoxaparin 40 Mg/0.4 Ml Syringe SUB-Q Q12HR JANE Furosemide 80 mg 11/19/24 09:00 Furosemide 80 Mg Tablet PO DAILY [facility] Hydromorphone HCl 0.5 mg 11/18/24 17:51 11/18/24 23:33 Hydromorphone Hcl Inj (*Crx) 2 Mg/Ml Vial IV PUSH 0.5 mg Q4H PRN Administration Pain Rated 7-10 Vancomycin HCl 1,500 mg in 500 mls @ 250 mls/hr 11/19/24 06:00 11/19/24 05:31 Vancomycin 1,500 Mg/Ns 500 Ml IVPB 250 mls/hr Q12H JANE Administration Magnesium Oxide 400 mg 11/18/24 22:45 11/18/24 22:47 Magnesium Oxide 400 Mg Tablet PO 400 mg BID JANE Administration Meclizine HCl 12.5 mg 11/18/24 22:12 Meclizine Hcl 12.5 Mg Tablet PO TID PRN dizziness Non-Formulary Medication 1 each 11/18/24 22:22 Nonformulary Nutritional Supplement XX 11/19/24 22:21 PRN PRN PROTOCOL Ondansetron HCl 4 mg 11/18/24 17:51 Ondansetron Inj 4 Mg/2 Ml Vial IV PUSH Q4H PRN Nausea Oxybutynin Chloride 5 mg 11/18/24 22:12 Oxybutynin Chloride Xl 5 Mg Tab.Er.24 PO HS PRN bladder spasms Potassium Chloride 10 meq 11/18/24 22:45 11/18/24 22:47 Potassium Chloride 10 Meq Er Tablet PO 10 meq BID [facility] Administration Fluticasone/Salmeterol 2 puff 11/19/24 08:00 11/19/24 07:32 Fluticasone/Salmeterol 230-21 Mcg Inhaler 1 Puff INHALATION 2 puff Q12HRT [facility] Administration Vitamin D 125 mcg 11/19/24 09:00 Cholecalciferol (Vitamin D3) 125 Mcg (5,000 Units) Tablet PO DAILY [facility] Radiology Results: ITS Impressions Venous Doppler Study 11/18/24 16:25 IMPRESSION: 1. No deep venous thrombosis in either lower limb. Chest X-Ray 11/18/24 16:42 IMPRESSION: Bibasilar atelectasis versus pneumonia. Labs Labs: Laboratory Results - last 24 hr 11/18/24 11/19/24 16:21 04:49 WBC 7.1 5.9 RBC 4.48 4.02 L Hgb 12.6 11.4 L Hct 40.5 38.8 MCV 90.4 96.5 D MCH 28.1 28.4 MCHC 31.1 L 29.4 L RDW 14.5 14.6 H Plt Count 230 204 MPV 9.4 10.2 Immature Gran % (Auto) 0.1 Neut % (Auto) 70.0 Lymph % (Auto) 15.8 L Sharp % (Auto) 11.7 H Eos % (Auto) 1.8 Baso % (Auto) 0.6 Lymph # (Auto) 1.12 Sharp # (Auto) 0.8 H Eos # (Auto) 0.1 Baso # (Auto) 0.0 Abs Immat Gran (auto) 0.01 Absolute Neuts (auto) 5.0 Absolute Nucleated RBC 0.000 Nucleated RBC % 0.0 ESR 41 H PT 13.6 INR 1.1 APTT 22.7 Sodium 139 136 L Potassium 4.1 4.0 Chloride 103 104 Carbon Dioxide 31 H 28 Anion Gap 5 4 BUN 15 D 15 Creatinine 0.59 L 0.52 L Estim Creat Clear Calc 98 108 Estimated GFR > 60 > 60 Glucose 96 132 H Lactic Acid 0.9 Calcium 8.7 8.2 L Total Bilirubin 0.4 AST 42 H ALT 25 Alkaline Phosphatase 192 H C-Reactive Protein 2.4 H NT-Pro-B Natriuret Pep 491 H Total Protein 7.3 Albumin 3.6 Quality VTE Prophylaxis VTE prophylaxis: pharmacologic ordered (Lovenox 40 mg subQ q.12 hours.)
[2024-11-19 07:56] VITALS: PULSE 70; RESP 20; O2SAT 90
[2024-11-19] MEDS: POTASSIUM CHLORIDE 10 MEQ ER TABLET PO ×2 (08:30→17:53)
[2024-11-19] MEDS: CHOLECALCIFEROL (VITAMIN D3) 125 MCG (5,000 UNITS) TABLET PO (08:31)
[2024-11-19] MEDS: CLOPIDOGREL BISULFATE 75 MG TABLET PO (08:31)
[2024-11-19] MEDS: ACETAMINOPHEN 325 MG TABLET 650 MG PO (08:31)
[2024-11-19] MEDS: MAGNESIUM OXIDE 400 MG TABLET PO ×2 (08:31→17:53)
[2024-11-19] MEDS: FUROSEMIDE 80 MG TABLET PO (08:31)
[2024-11-19] MEDS: ENOXAPARIN 40 MG/0.4 ML SYRINGE SUB-Q ×2 (08:31→21:50)
[2024-11-19 14:00] VITALS: BP 123/60; PULSE 68; RESP 20; TEMP 36.9; O2SAT 98
[2024-11-19 20:25] VITALS: O2SAT 97
[2024-11-19 21:44] VITALS: BP 161/63; PULSE 74; RESP 18; TEMP 36.2; O2SAT 100
[2024-11-19] MEDS: ATORVASTATIN 40 MG TABLET 80 MG PO (21:50)
[2024-11-19] MEDS: oxyBUTYnin CHLORIDE XL 5 MG TAB.ER.24 PO (21:54)
[2024-11-20 05:20] LABS: Hematocrit 35.2 % (37.0-47.0); Hemoglobin 10.7 g/dL (12.0-15.0); Mean Corpuscular HGB Conc 30.4 g/dl (32-36); Mean Corpuscular Hemoglobin 28.1 pg (26-34); Mean Corpuscular Volume 92.4 fl (80-100); Mean Platelet Volume 9.7 fl (7.4-10.4); Platelet Count Result 194 k/mm3 (150-375); Red Blood Count 3.81 M/mm3 (4.2-5.4); Red Cell Distribution Width 14.6 % (11.5-14.5); White Blood Count 4.7 K/mm3 (4.5-10.0)
[2024-11-20 05:33] LABS: Alanine Aminotransferase 21 U/L (6-35); Albumin Level 2.9 g/dL (3.5-5.1); Alkaline Phosphatase 140 U/L (38-126); Anion Gap 2 mmol/L (4-12); Aspartate Amino Transferase 32 U/L (14-36); Bilirubin,Total 0.4 mg/dL (0.2-1.3); Blood Urea Nitrogen 14 mg/dL (7-17); Calcium 8.3 mg/dL (8.4-10.2); Carbon Dioxide 30 mmol/L (22-30); Chloride 102 mmol/L (98-107); Estimated CRCL calculation 105 ml/min; Estimated Glomerular Filt Rate > 60; Glucose 110 mg/dL (65-110); Potassium 3.7 mmol/L (3.4-5.0); Sodium 134 mmol/L (137-145); Total Protein 5.9 g/dL (6.3-8.2)
[2024-11-20 05:38] LABS: Vancomycin Trough 14.2 ug/mL (10.0-20.0)
[2024-11-20 06:00] VITALS: BP 121/70; PULSE 79; RESP 18; TEMP 36.4; O2SAT 100
[2024-11-20] MEDS: HYDROmorphone HCL INJ (*CRX) 2 MG/ML VIAL 0.5 MG IV PUSH (06:00)
[2024-11-20] MEDS: VANCOMYCIN 1,500 MG/NS 500 ML 1,500 MG/500 ML BAG 250 MG IVPB (07:02)
[2024-11-20] MEDS: FLUTICASONE/SALMETEROL 230-21 MCG INHALER 1 PUFF 2 PUFF INHALATION ×2 (07:13→21:35)
--- NOTE | 2024-11-20 07:49 | P.PNIM_ITS ---
Progress Note: A&P Assessment and Plan (1) Cellulitis: Qualifiers: Laterality: left Site of cellulitis: extremity Site of cellulitis of extremity: lower extremity Qualified Code(s): L03.116 - Cellulitis of left lower limb Code(s): L03.90 - Cellulitis, unspecified Status: Acute Assessment and Plan: Bilateral lower extremity with edema and redness for the past 3 weeks with associated pain. - Started on vancomycin, pharmacy to dose - Venous dopplers negative - CT showed no rim enhancing fluid collection but significant soft tissue edema detected - Monitor vital signs, I&Os, neuro status and patient is a fall risk - Monitor serum electrolytes, CBC, cultures, WBC and temp curve - Consider a consult with wound care or general surgeon Patients erythema edema and warmth to the bilateral lower extremities continues to improve. The right lower extremity is mildly red without warmth. The left lower extremity remains erythematous with noted edema and slight warmth but this has significantly improved since yesterday. Pain is improving and patient able to walk to bathroom today using walker. Continues to endorse pain with active ROM of the left ankle. 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 Venous dopplers negative (3) Morbid (severe) obesity due to excess calories: Code(s): E66.01 - Morbid (severe) obesity due to excess calories Status: Acute Assessment and Plan: Encouraged healthy diet and exercise (4) Nocturnal hypoxemia due to obesity: Code(s): E66.9 - Obesity, unspecified; G47.36 - Sleep related hypoventilation in conditions classified elsewhere Status: Acute Assessment and Plan: Chronic 3L NC overnight. Time Spent With Patient Time with patient: 25 - 35 minutes Subjective Date/time seen: 11/20/24 07:49 Interval history: 69-year-old female with a past medical history of morbid obesity, obstructive sleep apnea on nighttime O2 at 3L NC, chronic back pain, psoriasis, chronic lymphedema with venous stasis dermatitis who presented to the hospital for i ncreasing swelling and erythema of the left leg. Patient is pleasant sitting up comfortably in her chair. She states that the swelling has significantly improved. Pain is improving and patient able to walk to bathroom today using walker. Continues to endorse pain with active ROM of the left ankle but does state that this has improved since admission. She denies any pain to the right ankle. She has no other complaints denies chest pain, shortness a breath, palpitations, nausea/vomiting, and abdominal pain. Review of Systems Review of Systems: All systems reviewed & are unremarkable except as noted in HPI and below Exam Narrative: AF HR 73 RR 18 SpO2 99 BP 162/96 General: female in no acute respiratory distress who is nontoxic appearing, sitting up in her chair HEENT: Normocephalic. Atraumatic. Extraocular movement intact. Sclera clear and anicteric. No facial asymmetry. Chest: Lungs are clear to auscultation bilaterally. No wheezes or crackles. CV: Heart was regular rate and rhythm. S1-S2. No murmurs, gallops, or rubs. Abd: Abdomen was soft. Nontender. Nondistended. Positive bowel sounds. Ext: DP pulses bilaterally. Pretibial erythema, edema and warmth to the mid calf region of the left lower extremity. Pain with active range of motion and remains tender to palpation. No noted areas of fluctuance. Slight pretibial redness to the right lower extremity. Significantly improved since yesterday. Tender to palpation. No openly draining wounds. Neuro: Patient is alert and oriented x4. Speech is clear. Objective Data Vital Signs Vital Signs: Vital Signs - 24 hr 11/19/24 07:56 11/19/24 14:00 11/19/24 20:25 Temperature 98.4 F Pulse Rate 70 68 Respiratory Rate 20 20 Blood Pressure 123/60 Pulse Oximetry 90 98 97 Oxygen Delivery Room Air Room Air 11/19/24 21:00 11/19/24 21:44 11/20/24 06:00 Temperature 97.1 F L 97.5 F L Pulse Rate 74 79 Respiratory Rate 18 18 Blood Pressure 161/63 H 121/70 Pulse Oximetry 100 100 Oxygen Delivery Room Air Intake/Output Intake/Output: Intake & Output 11/17/24 11/18/24 11/19/24 11/20/24 23:59 23:59 23:59 23:59 Intake Total 500 2592.0 600 Balance 500 2592.0 600 Meds/Results Medications: Active Medications Generic Name Dose Route Start Last Admin Trade Name Freq PRN Reason Stop Dose Admin Acetaminophen 650 mg 11/18/24 17:51 11/19/24 08:31 Acetaminophen 325 Mg Tablet PO 650 mg Q4H PRN Administration Mild Pain (1-3) or Fever Atorvastatin Calcium 80 mg 11/18/24 22:20 11/19/24 21:50 Atorvastatin 40 Mg Tablet PO 80 mg HS JANE Administration Clopidogrel Bisulfate 75 mg 11/19/24 09:00 11/19/24 08:31 Clopidogrel Bisulfate 75 Mg Tablet PO 75 mg DAILY JANE Administration Enoxaparin Sodium 40 mg 11/19/24 09:00 11/19/24 21:50 Enoxaparin 40 Mg/0.4 Ml Syringe SUB-Q 40 mg Q12HR JANE Administration Furosemide 80 mg 11/19/24 09:00 11/19/24 08:31 Furosemide 80 Mg Tablet PO 80 mg DAILY JANE Administration Hydromorphone HCl 0.5 mg 11/18/24 17:51 11/20/24 06:00 Hydromorphone Hcl Inj (*Crx) 2 Mg/Ml Vial IV PUSH 0.5 mg Q4H PRN Administration Pain Rated 7-10 Vancomycin HCl 1,500 mg in 500 mls @ 250 mls/hr 11/20/24 06:00 11/20/24 07:02 Vancomycin 1,500 Mg/Ns 500 Ml IVPB 250 mls/hr Q12H JANE Administration Magnesium Oxide 400 mg 11/18/24 22:45 11/19/24 17:53 Magnesium Oxide 400 Mg Tablet PO 400 mg BID JANE Administration Meclizine HCl 12.5 mg 11/18/24 22:12 Meclizine Hcl 12.5 Mg Tablet PO TID PRN dizziness Ondansetron HCl 4 mg 11/18/24 17:51 Ondansetron Inj 4 Mg/2 Ml Vial IV PUSH Q4H PRN Nausea Oxybutynin Chloride 5 mg 11/18/24 22:12 11/19/24 21:54 Oxybutynin Chloride Xl 5 Mg Tab.Er.24 PO 5 mg HS PRN Administration bladder spasms Potassium Chloride 10 meq 11/18/24 22:45 11/19/24 17:53 Potassium Chloride 10 Meq Er Tablet PO 10 meq BID JANE Administration Fluticasone/Salmeterol 2 puff 11/19/24 08:00 11/20/24 07:13 Fluticasone/Salmeterol 230-21 Mcg Inhaler 1 Puff INHALATION 2 puff Q12HRT JANE Administration Vitamin D 125 mcg 11/19/24 09:00 11/19/24 08:31 Cholecalciferol (Vitamin D3) 125 Mcg (5,000 Units) Tablet PO 125 mcg DAILY JANE Administration Radiology Results: ITS Impressions Venous Doppler Study 11/18/24 16:25 IMPRESSION: 1. No deep venous thrombosis in either lower limb. Chest X-Ray 11/18/24 16:42 IMPRESSION: Bibasilar atelectasis versus pneumonia. Lower Extremity CT 11/19/24 18:09 IMPRESSION: No rim-enhancing fluid collection. Significant soft tissue edema is detected. Labs Labs: Laboratory Results - last 24 hr 11/20/24 05:15 WBC 4.7 RBC 3.81 L Hgb 10.7 L Hct 35.2 L MCV 92.4 MCH 28.1 MCHC 30.4 L RDW 14.6 H Plt Count 194 MPV 9.7 Sodium 134 L Potassium 3.7 Chloride 102 Carbon Dioxide 30 Anion Gap 2 L BUN 14 Creatinine 0.55 L Estim Creat Clear Calc 105 Estimated GFR > 60 Glucose 110 Calcium 8.3 L Total Bilirubin 0.4 AST 32 ALT 21 Alkaline Phosphatase 140 H Total Protein 5.9 L Albumin 2.9 L Vancomycin Trough 14.2 Quality VTE Prophylaxis VTE prophylaxis: pharmacologic ordered (Lovenox 40 mg subQ q.12 hours.)
[2024-11-20] MEDS: ENOXAPARIN 40 MG/0.4 ML SYRINGE SUB-Q ×2 (08:30→20:47)
[2024-11-20] MEDS: MAGNESIUM OXIDE 400 MG TABLET PO ×2 (08:30→16:08)
[2024-11-20] MEDS: FUROSEMIDE 80 MG TABLET PO (08:30)
[2024-11-20] MEDS: CLOPIDOGREL BISULFATE 75 MG TABLET PO (08:30)
[2024-11-20] MEDS: CHOLECALCIFEROL (VITAMIN D3) 125 MCG (5,000 UNITS) TABLET PO (08:30)
[2024-11-20] MEDS: POTASSIUM CHLORIDE 10 MEQ ER TABLET PO ×2 (08:30→16:08)
[2024-11-20 14:00] VITALS: BP 162/96; PULSE 73; RESP 18; TEMP 36.2; O2SAT 99
[2024-11-20] MEDS: VANCOMYCIN 1,500 MG/NS 500 ML 1,500 MG/500 ML BAG 175 MG IVPB (17:55)
[2024-11-20 20:40] VITALS: PULSE 90; RESP 16; O2SAT 100
[2024-11-20] MEDS: oxyBUTYnin CHLORIDE XL 5 MG TAB.ER.24 PO (20:45)
[2024-11-20] MEDS: ATORVASTATIN 40 MG TABLET 80 MG PO (20:45)
[2024-11-20 21:02] VITALS: BP 144/55; PULSE 77; RESP 18; TEMP 36.1; O2SAT 100
[2024-11-20 22:00] VITALS: PULSE 90; RESP 16
[2024-11-20] MEDS: ACETAMINOPHEN 325 MG TABLET 650 MG PO (22:48)
[2024-11-21] MEDS: VANCOMYCIN 1,500 MG/NS 500 ML 1,500 MG/500 ML BAG 175 MG IVPB (05:51)
[2024-11-21 06:00] VITALS: BP 127/53; PULSE 68; RESP 18; TEMP 36.4; O2SAT 100
[2024-11-21 06:22] LABS: Hematocrit 37.3 % (37.0-47.0); Hemoglobin 11.3 g/dL (12.0-15.0); Mean Corpuscular HGB Conc 30.3 g/dl (32-36); Mean Corpuscular Hemoglobin 28.1 pg (26-34); Mean Corpuscular Volume 92.8 fl (80-100); Mean Platelet Volume 10.1 fl (7.4-10.4); Platelet Count Result 204 k/mm3 (150-375); Red Blood Count 4.02 M/mm3 (4.2-5.4); Red Cell Distribution Width 14.5 % (11.5-14.5); White Blood Count 4.8 K/mm3 (4.5-10.0)
[2024-11-21 06:46] LABS: Alanine Aminotransferase 21 U/L (6-35); Alkaline Phosphatase 146 U/L (38-126); Anion Gap 4 mmol/L (4-12); Aspartate Amino Transferase 34 U/L (14-36); Bilirubin,Total 0.6 mg/dL (0.2-1.3); Blood Urea Nitrogen 11 mg/dL (7-17); Calcium 8.5 mg/dL (8.4-10.2); Carbon Dioxide 33 mmol/L (22-30); Chloride 101 mmol/L (98-107); Estimated CRCL calculation 106 ml/min; Estimated Glomerular Filt Rate > 60; Glucose 101 mg/dL (65-110); Potassium 3.8 mmol/L (3.4-5.0); Sodium 138 mmol/L (137-145); Total Protein 6.1 g/dL (6.3-8.2)
[2024-11-21] MEDS: FLUTICASONE/SALMETEROL 230-21 MCG INHALER 1 PUFF 2 PUFF INHALATION (08:29)
[2024-11-21 08:32] VITALS: PULSE 92; RESP 20
[2024-11-21] MEDS: POTASSIUM CHLORIDE 10 MEQ ER TABLET PO ×2 (08:53→17:17)
[2024-11-21] MEDS: ENOXAPARIN 40 MG/0.4 ML SYRINGE SUB-Q (08:53)
[2024-11-21] MEDS: FUROSEMIDE 80 MG TABLET PO (08:54)
[2024-11-21] MEDS: CLOPIDOGREL BISULFATE 75 MG TABLET PO (08:54)
[2024-11-21] MEDS: CHOLECALCIFEROL (VITAMIN D3) 125 MCG (5,000 UNITS) TABLET PO (08:54)
[2024-11-21] MEDS: MAGNESIUM OXIDE 400 MG TABLET PO ×2 (08:54→17:17)
[2024-11-21] MEDS: MECLIZINE HCL 12.5 MG TABLET PO (08:59)
--- NOTE | 2024-11-21 13:08 | P.DS_ITS ---
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: Code(s): I89.0 - Lymphedema, not elsewhere classified; I99.9 - Unspecified disorder of circulatory system Status: Acute (3) Morbid (severe) obesity due to excess calories: Code(s): E66.01 - Morbid (severe) obesity due to excess calories Status: Acute (4) Nocturnal hypoxemia due to obesity: Code(s): E66.9 - Obesity, unspecified; G47.36 - Sleep related hypoventilation in conditions classified elsewhere Status: Acute DS: Summary Hospital Course Reason for hospitalization: cellulitis lymphedema due to venous disease morbid obesity nocturnal hypoxemia Hospital Course: 69-year-old female with a past medical history of morbid obesity, obstructive sleep apnea on nighttime O2 at 3L NC, chronic back pain, psoriasis, chronic lymphedema with venous stasis dermatitis who presented to the hospital for increasing swelling and erythema of the left leg over the past 3 weeks. Not meeting sepsis criteria on admission. Patient started on IV vancomycin on admission for cellulitis. Venous dopplers were obtained and negative for DVT. A CT was obtained to rule out abscess formation and showed no rim enhancing fluid collection but significant soft tissue edema detected. Throughout admission patients cellulitis continued to improve. She worked well with therapy who recommended home health. At time of discharge patient denied any pain with ROM of the ankles and noted that the tenderness of the left calf had much improved. She was transitioned to oral doxycycline (penicillin allergy) at time of discharge to complete the antibiotic course. Patient had no complaints at time of discharge denying chest pain, shortness a breath, palpitations, nausea/vomiting, abdominal pain, and dizziness/lightheadedness. Patient discharged home with home health in a stable condition. She is to follow up with her primary care provider in 1 week. Status at Discharge Functional status at discharge: uses cane/walker Time Spent with Patient Time attestation: Total time spent providing and/or coordinating discharge services: Time spent: Greater than 30 minutes Exam Narrative: AF HR 68 RR 18 SpO2 100 BP 127/53 General: female in no acute respiratory distress who is nontoxic appearing, sitting up in her chair HEENT: Normocephalic. Atraumatic. Extraocular movement intact. Sclera clear and anicteric. No facial asymmetry. Chest: Lungs are clear to auscultation bilaterally. No wheezes or crackles. CV: Heart was regular rate and rhythm. S1-S2. No murmurs, gallops, or rubs. Abd: Abdomen was soft. Nontender. Nondistended. Positive bowel sounds. Ext: DP pulses bilaterally. No noted areas of fluctuance to the left lower extremity. Slight redness to the left lower extremity with edema but no warmth. Slight tenderness to palpation to the mid left calf, improved. No pain with active rom to the ankles. No erythema or warmth to the right lower extremity. No openly draining wounds. Neuro: Patient is alert and oriented x4. Speech is clear. DS: Data Data Completed and Pending Completed studies during hospitalization: lower extremity ct chest xr venous doppler Labs on day of discharge: Labs from last 24 hours 11/21/24 05:47 WBC 4.8 RBC 4.02 L Hgb 11.3 L Hct 37.3 MCV 92.8 MCH 28.1 MCHC 30.3 L RDW 14.5 Plt Count 204 MPV 10.1 Sodium 138 Potassium 3.8 Chloride 101 Carbon Dioxide 33 H Anion Gap 4 BUN 11 Creatinine 0.54 L Estim Creat Clear Calc 106 Estimated GFR > 60 Glucose 101 Calcium 8.5 Total Bilirubin 0.6 AST 34 ALT 21 Alkaline Phosphatase 146 H Total Protein 6.1 L Albumin 3.0 L Preliminary micro results at discharge 11/18/24 17:49 Blood Culture - Preliminary Blood 11/18/24 17:29 Blood Culture - Preliminary Blood Discharge Plan Discharge Attending physician on discharge: Amari Werner Consulting providers: Hyacinth Stewart Discharging Clinician: Hyacinth Stewart Anticipated Discharge Date/Time: 11/21/24 13:00 Patient Disposition: Home with Home Health Service Activity: as tolerated Diet: as tolerated and heart healthy Discharge Instructions: Per Care Coordination: [place] ([phone]) will call to set up initial visit. RN please fax discharge paperwork to [phone] Discharge disposition: Patient admitted to the hospital for cellulitis of the lower extremity, no abscess or DVT on imaging Take medications as prescribed doxycycline twice a day, course to be completed on 11/26 attached is information on this medication Keep the area clean and dry Continue to elevate the legs to help with edema Continue to monitor the lower extremity for redness, swelling or open wounds Follow up with outpatient vascular surgeon, discuss with PCP Monitor blood pressures Take caution while standing, rising, or moving Change positions slowly taking a break between each position change If you standing feel dizzy sit back down and take a break Encouraged to continue with yearly vaccinations Return to the emergency department if he developed sudden shortness of breath, chest pain, nausea, vomiting, upset stomach or intractable diarrhea Return to the emergency department if you develop fever greater than 101.5 Follow-up with the primary care physician within 1-2 weeks Thank you for choosing [facility] for your healthcare needs Patient Instructions: Antibiotic Form, Doxycycline (By mouth), Cellulitis (ED), Lymphedema (DC), Venous Insufficiency (DC) Patient Language: Portuguese Stand Alone Forms: General Discharge Information Follow-up/Referrals: Caesar,Maurice Nevarez MD [Primary Care Provider] - 1 Week Discharge Medications: New doxycycline hyclate 100 mg capsule 100 mg PO Q12H Qty: 10 0RF Continued magnesium oxide 500 mg magnesium tablet 500 mg PO BID Qty: 20 0RF atorvastatin 80 mg tablet 80 mg PO HS clopidogrel 75 mg tablet 75 mg PO DAILY fluticasone furoate-vilanterol [Breo Ellipta] 200-25 mcg/dose blister with device 1 inh INHALATION HS furosemide 80 mg tablet 80 mg PO DAILY PRN (Reason: edema) Patient Comments: as needed: she states she take 80mg in morning and will break up in 1/2 tablet depending on daily activity and only took 1/2 a tablet this morning and not the other half because she is in hospital at this time. meclizine 25 mg tablet 12.5 mg PO .TID PRN (Reason: dizziness) Patient Comments: she sometimes takes 1/2 tab oxybutynin chloride 5 mg tablet extended release 24hr 5 mg PO HS PRN (Reason: bladder spasms) potassium chloride 10 mEq tablet,ER particles/crystals 10 meq PO BID cholecalciferol (vitamin D3) [Vitamin D3] 125 mcg (5,000 unit) tablet 125 mcg PO DAILY Patient Comments: STATES TAKES THE SOFT JEL ginkgo biloba leaf extract 125 mg capsule 125 mg PO DAILY Patient Comments: PATIENT WANTS TO TAKE Rx Instructions: give with meal/snack acetaminophen 325 mg Tablet 500 mg PO Q4H PRN (Reason: Mild Pain (1-3) Or Fever) coQ10 (ubiquinol) 200 mg capsule 200 mg PO DAILY Date of admission: 11/19/24 10:04 Primary Care Provider: CaesarMaurice Admitting Provider: Jon Kwong Attending physician on admission: Jon Kwong Condition: Stable Hospitalist MIPS Heart Failure (Exclusion) Patient has history of Heart Transplant or Left Ventricular Assistive Device?: No IF YES, STOP HERE Heart Failure (Qualifier) Patient has current or prior documentation of LVEF less than or equal to 40%, or mod/servere depressed LVSF?: No IF NO, STOP HERE
[2024-11-21 14:00] VITALS: BP 148/93; PULSE 70; RESP 18; TEMP 36.1; O2SAT 98
[2024-11-21] MEDS: ACETAMINOPHEN 325 MG TABLET 650 MG PO (17:58)
== END 2024-11-21 19:49 | disposition home health service (06) | DRG 603 ==
LOC: ANHED 17:51 → ANH2MED 18:57
PROVIDERS: Internal Medicine; Admitting Provider Internal Medicine; Emergency Provider Physician Assistant; PCP Internal Medicine; Visit Provider Student in an Organized Health Care Education/Training Program
DX: L03.116 Cellulitis of left lower limb (principal); Z68.41 Body mass index [BMI] 40.0-44.9, adult; I50.9 Heart failure, unspecified; I89.0 Lymphedema, not elsewhere classified; I87.2 Venous insufficiency (chronic) (peripheral); E66.01 Morbid (severe) obesity due to excess calories; G47.33 Obstructive sleep apnea (adult) (pediatric); G47.36 Sleep related hypoventilation in conditions classified elsewhere; Z79.02 Long term (current) use of antithrombotics/antiplatelets
CPT/HCPCS: 36415; 71045; 73701; 80048; 80053; 80202; 83605; 83880; 85025; 85027; 85610; 85652; 85730; 86140; 87040; 93005; 93970; 94640; 96365; 96366; 96372; 96375; 96376; 97161; 97165; 99285; A9270; G0378; J1171; J1650; J1938; J2405; J3370; Q9967